=== PATIENT | female | born 2000 | race Caucasian/White ===

== ENCOUNTER 2020-01-28 01:56 | Emergency (ER) | payer BC ==
--- NOTE | 2020-01-28 02:32 | ERPHSYRPT ---
- History of Present Illness Time Seen by Provider: 01/28/20 02:20 Source: patient Exam Limitations: no limitations Patient Subjective Stated Complaint: pt states that she has had a migraine since 01/17/20, pt states that she went to [facility] on , pt states that she is in between doctors and is not currently taking her migraine medication due to no refills Triage Nursing Assessment: pt ambulated into the er, pt is axo x3, c/o headache, states 7/10 pain to head, N/V, c/o dizziness, photophobia, pupils 4 mm and PERRL, lung sounds clear in all lobes, vitals wnl Physician History: This is a 19-year-old white female with history of migraine headaches who has had intermittent migraine headaches since January 16. She was seen recently at an outside emergency department and given a combination medications that did not seem to help. Her breakthrough medication which included naproxen, Compazine and an Imitrex type of medication. Patient has had associated nausea vomiting dizziness and light sensitivity. Patient is in between doctors and neurologist at this time. Patient denies head trauma. She has not had any CAT scan of her head recently. Timing/Duration: day(s) (For several days), intermittent, worse Head Pain Location: global Severity of Pain-Max: moderate Severity of Pain-Current: moderate Recent Head Trauma: no recent headache/trauma, frequent headaches (Nearly 2 weeks) Modifying Factors: Improves With: exposure to light, noise Associated Symptoms: dizziness, nausea/vomiting, sensitive to light Previous symptoms: same symptoms as today, recently seen, recently treated Allergies/Adverse Reactions: No Known Drug Allergies Allergy (Unverified 01/28/20 02:07) Home Medications: No Reportable Medications [No Reported Medications] 01/28/20 [History] Hx Pneumococcal Vaccination/Date Given: Yes Travel Risk - International Travel Have you traveled outside of the country in past 3 weeks: No - Coronavirus Screening Are you exhibiting any of the following symptoms?: No Close contact with a COVID-19 positive Pt in past 14-21 Days: No - Review of Systems Constitutional: No Symptoms Eyes: No Symptoms Ears, Nose, & Throat: No Symptoms Respiratory: No Symptoms Cardiac: No Symptoms Abdominal/Gastrointestinal: No Symptoms Genitourinary Symptoms: No Symptoms Musculoskeletal: No Symptoms Skin: No Symptoms Neurological: Dizziness, Headache Psychological: No Symptoms Endocrine: No Symptoms Hematologic/Lymphatic: No Symptoms Immunological/Allergic: No Symptoms All Other Systems: Reviewed and Negative - Past Medical History Pertinent Past Medical History: Yes Neurological History: Migraines ENT History: No Pertinent History Cardiac History: No Pertinent History Respiratory History: No Pertinent History Endocrine Medical History: No Pertinent History Musculoskeletal History: No Pertinent History GI Medical History: No Pertinent History History: No Pertinent History Psycho-Social History: No Pertinent History Female Reproductive Disorders: No Pertinent History Other Medical History: left brachial plexus - Past Surgical History Past Surgical History: Yes Neuro Surgical History: No Pertinent History Cardiac: No Pertinent History Respiratory: No Pertinent History Gastrointestinal: No Pertinent History Genitourinary: No Pertinent History Musculoskeletal: Orthopedic Surgery Female Surgical History: No Pertinent History Other Surgical History: LADs procedure - Social History Smoking Status: Never smoker Exposure to second hand smoke: No Drug Use: none Patient Lives Alone: Yes - Female History Hx Now: No - Nursing Vital Signs Nursing Vital Signs: Initial Vital Signs Temperature 98.1 F 01/28/20 02:09 Pulse Rate 92 H 01/28/20 02:09 Respiratory Rate 18 01/28/20 02:09 Blood Pressure 132/74 01/28/20 02:09 O2 Sat by Pulse Oximetry 100 01/28/20 02:09 Pain Scale Pain Intensity 7 - Physical Exam General Appearance: mild distress, alert, anxiety Eye Exam: PERRL/EOMI, eyes nml inspection Ears, Nose, Throat Exam: normal ENT inspection, moist mucous membranes Neck Exam: normal inspection, non-tender, supple, full range of motion Respiratory Exam: normal breath sounds, lungs clear, No chest tenderness, No respiratory distress Cardiovascular Exam: regular rate/rhythm, normal heart sounds, normal peripheral pulses Gastrointestinal/Abdominal Exam: No tenderness Back Exam: normal inspection, normal range of motion, No CVA tenderness, No vertebral tenderness Extremity Exam: normal inspection, normal range of motion, pelvis stable Mental Status Exam: alert, oriented x 3, [employer] display [employer] Exam: normal hearing, normal speech, PERRL, tongue midline Coordination/Gait Exam: normal gait, normal cerebellar function Motor/Sensory Exam: no motor deficit, no sensory deficit Skin Exam: normal color, warm, dry Lymphatic Exam: No adenopathy SpO2 Interpretation: normal SpO2: 100 O2 Delivery: Room Air - Course Nursing assessment & vital signs reviewed: Yes Ordered Tests: Active Orders 24 hr Category Date Time Status HEAD WITHOUT CONTRAST [CT] Stat Exams 01/28/20 02:32 Taken - Progress Progress: improved, re-examined Air Movement: good Progress Note: 01/28/20 03:12 CAT scan of the head reveals no acute intracranial abnormality Blood Culture(s) Obtained: No Antibiotics given: No Counseled pt/family regarding: diagnosis, need for follow-up, rad results - Departure Departure Disposition: Home Clinical Impression: Migraine headache Condition: Stable Critical Care Time: No Additional Instructions: Continue your breakthrough medication as prescribed. Follow-up with either Don Presley DO or Franc Le MD. Both are neurologist in [facility]. See sheet provided to you
[2020-01-28] MEDS ORDERED: Hydromorphone 1 mg/ml Ampule IM ONE (03:10)
[2020-01-28] MEDS ORDERED: Phenergan 25 MG INJ IM ONE (03:11)
[2020-01-28] MEDS ORDERED: Hydromorphone 1 mg/ml Ampule ONE (03:14)
[2020-01-28] MEDS ORDERED: Phenergan 25 MG INJ ONE (03:14)
[2020-01-28 03:17] VITALS: O2SAT 99
[2020-01-28] MEDS ORDERED: Hydromorphone 1 mg/ml Ampule IV ONE (03:17)
[2020-01-28 03:45] VITALS: BP 133/68; PULSE 97
--- NOTE | 2020-01-28 07:46 | XRAY ---
Indication: Migraine headache, photophobia, and dizziness. Multiple contiguous axial images obtained through the head without contrast. Comparison: None Normal appearing brain parenchyma, ventricles, and bony calvarium. Visualized paranasal sinuses and mastoid air cells are clear. Impression: Normal CT head without contrast exam. Comment: Preliminary interpretation was made by [facility]. No critical discrepancy.
== END 2020-01-28 03:48 | disposition home or self-care (01) ==
LOC: ED 01:56
DX: G43.909 Migraine, unspecified, not intractable, without status migrainosus (principal)
CPT/HCPCS: 70450; 96372; 96374; 99284; J1170; J2550